=== PATIENT | female | born 1970 | race Caucasian/White ===

== ENCOUNTER 2018-01-13 18:51 | Emergency (ER) | payer MEDICAID ==
[~2018-01-13] VITALS: Ht 152.4 cm; Wt 91.8 kg
[2018-01-13 18:54] VITALS: Ht 152.4 cm; Wt 91.8 kg
[2018-01-13 19:58] VITALS: BP 147/81
== END 2018-01-13 19:58 | disposition home or self-care (01) ==
LOC: ED 18:51
DX: K04.7 Periapical abscess without sinus (principal)
CPT/HCPCS: J0696; J2001; J3010

== ENCOUNTER 2020-06-09 10:52 | Emergency (ER) | payer MEDICAID ==
[2020-06-09 12:17] LABS: ALKALINE PHOSPHATASE 96 U/L (46-116); ALT/SGPT 10 U/L (14-59); AST/SGOT 18 U/L (15-37); BILIRUBIN TOTAL 0.28 mg/dL (0.20-1.00); CALCIUM 8.7 mg/dL (8.5-10.1); CARBON DIOXIDE 29.2 mmol/L (21-32); CHLORIDE SERUM 101 mmol/L (98-107); CREATININE SERUM 0.5 mg/dL (0.6-1.0); GFR1 > 60 mL/min; GLUCOSE SERUM 96 mg/dL (74-106); SODIUM SERUM 136 mmol/L (136-145); TOTAL PROTEIN, SERUM 7.8 g/dL (6.4-8.2)
[2020-06-09 12:18] LABS: ALBUMIN 3.2 g/dL (3.4-5.0)
[2020-06-09 12:21] LABS: BASOPHIL % 0.3 % (0-2); PLATELET COUNT 309 x10^3mcL (130-400); RED CELL DISTRIBUTION WIDTH 17.4 % (11.5-14.5)
[2020-06-09 13:08] LABS: microscopic required? NO
[2020-06-09 13:21] LABS: urine erythrocyte NEGATIVE (NEGATIVE)
[2020-06-09 15:39] VITALS: BP 135/85
== END 2020-06-09 15:39 | disposition home or self-care (01) ==
LOC: ED 10:52
PROVIDERS: Student in an Organized Health Care Education/Training Program
DX: R07.89 Other chest pain (principal); F17.210 Nicotine dependence, cigarettes, uncomplicated
CPT/HCPCS: 85378; Q0092

== ENCOUNTER 2020-06-28 21:56 | Emergency (ER) | payer MEDICAID ==
[~2020-06-28] VITALS: Ht 152.4 cm; Wt 103.4 kg
[2020-06-28 22:10] VITALS: Ht 152.4 cm; Wt 103.4 kg
[2020-06-28 23:57] LABS: CALCIUM 8.7 mg/dL (8.5-10.1); CARBON DIOXIDE 30.1 mmol/L (21-32); CHLORIDE SERUM 100 mmol/L (98-107); CREATININE SERUM 0.5 mg/dL (0.6-1.0); GFR1 > 60 mL/min; GLUCOSE SERUM 109 mg/dL (74-106); SODIUM SERUM 137 mmol/L (136-145)
[2020-06-29 00:02] LABS: ALKALINE PHOSPHATASE 100 U/L (46-116); ALT/SGPT 23 U/L (14-59); AST/SGOT 18 U/L (15-37); BILIRUBIN TOTAL 0.3 mg/dL (0.20-1.00); TOTAL PROTEIN, SERUM 7.5 g/dL (6.4-8.2)
[2020-06-29 00:04] LABS: ALBUMIN 3.3 g/dL (3.4-5.0)
[2020-06-29 00:24] LABS: BASOPHIL % 0.4 % (0-2); PLATELET COUNT 351 x10^3mcL (130-400); RED CELL DISTRIBUTION WIDTH 17.7 % (11.5-14.5)
[2020-06-29 00:53] VITALS: BP 105/46
== END 2020-06-29 00:54 | disposition home or self-care (01) ==
LOC: ED 21:56
PROVIDERS: Emergency Medicine
DX: R07.89 Other chest pain (principal); M54.2 Cervicalgia; M54.9 Dorsalgia, unspecified